=== PATIENT | female | born 1970 | race Two or more races ===

== ENCOUNTER 2019-10-20 05:05 | Day surgery (SDC) | payer OTHER ==
[~2019-10-20 05:05] MED LIST: ALTACE5 MG PO; LASIX20 MG PO; NOVOLOG; SYNTHROID50 MCG PO; TENORMIN25 MG PO; TRESIBA; [UNRECOGNIZED DRUG - OTHER] PO
== END 2019-10-20 11:55 | disposition home or self-care (01) ==
LOC: CIR.AMB 05:05 → ADM 08:45 → CIR.AMB 11:55
DX: S52.531A Colles' fracture of right radius, initial encounter for closed fracture (principal)
CPT/HCPCS: 25118; 25280; 25609; C1776